=== PATIENT | male | born 1965 | race Hispanic/Latino ===

== ENCOUNTER 2019-03-06 11:09 | Inpatient (IN) | payer OTHER ==
[~2019-03-06] VITALS: Ht 177.8 cm; Wt 92.1 kg
[2019-03-06] MEDS ORDERED: SODIUM CHLORIDE 0.9% 1000ML 1,000 ML IV ONE ×2 (11:23→13:04)
[2019-03-06 11:47] LABS: BASOPHILS % (AUTO) 0.6 % (0.0-5.0); HEMATOCRIT 36.3 % (42-54); LYMPHOCYTES % (AUTO) 12.7 % (21.0-51.0); MEAN CORPUSCULAR HEMOGLOBIN 31.8 pg (27.0-33.0); MEAN CORPUSCULAR HGB CONC 36.5 g/dL (32.0-36.0); MEAN CORPUSCULAR VOLUME 87.3 fL (79-99); MONOCYTES % (AUTO) 5.8 % (3.0-13.0); NEUTROPHILS % (AUTO) 80.9 % (40.0-77.0); PLATELET COUNT (AUTO) 46 K/uL (130-400); RED BLOOD CELL COUNT(AUTO) 4.17 MIL/uL (4.50-6.20); RED CELL DISTRIBUTION WIDTH 13.2 % (11.0-15.5); WHITE BLOOD COUNT (AUTO) 4.6 K/uL (4.8-10.8)
[2019-03-06 11:54] LABS: POTASSIUM 3.6 mmol/L (3.5-5.1)
[2019-03-06 12:15] LABS: INR 1.05 (0.85-1.15); PARTIAL THROMBOPLASTIN TIME 32.2 SEC (26.3-35.5)
[2019-03-06 12:17] LABS: ALBUMIN 2.9 g/dL (3.5-5.0); BILIRUBIN,TOTAL 1.2 mg/dL (0.2-1.0); TOTAL PROTEIN, SERUM 6.5 g/dL (6.0-8.3)
[2019-03-06 12:32] LABS: MYOGLOBIN 334 ng/mL (10-92); TROPONIN I < 0.04 ng/mL (0.00-0.06)
[2019-03-06 12:35] LABS: APPEARANCE,URINE CLEAR (CLEAR); BILIRUBIN,URINE NEGATIVE (NEGATIVE); COLOR,URINE YELLOW (YELLOW); GLUCOSE, URINE (UA) 100 mg/dL (NEGATIVE); KETONES,URINE NEGATIVE (NEGATIVE); LEUKOCYTE ESTERASE ,URINE NEGATIVE (NEGATIVE); NITRATE,URINE NEGATIVE (NEGATIVE); OCCULT BLOOD,URINE MODERATE (NEGATIVE); PROTEIN,URINE 100 mg/dL (NEGATIVE); UROBILINOGEN,URINE 0.2 mg/dL (0.2-1.0)
[2019-03-06] MEDS ORDERED: ACETAMINOPHEN EXTRA STRENGTH 500 MG TABLET ONE (12:51)
[2019-03-06 13:14] LABS: BACTERIA,URINE Moderate /HPF (None Seen); SQUAMOUS EPITHELIAL CELL,UR 0-2 /HPF (0-2)
[2019-03-06 13:15] LABS: RBC,URINE 0-1 /HPF (0-1); WBC,URINE 0-1 /HPF (0-1)
[2019-03-06] MEDS ORDERED: HYDRALAZINE HCL 20 MG/ML VIAL IV PRN (14:00)
[2019-03-06] MEDS ORDERED: ONDANSETRON HCL 4 MG/2 ML VIAL IV PRN (14:00)
[2019-03-06] MEDS ORDERED: ACETAMINOPHEN 325 MG TAB PO PRN (14:00)
[2019-03-06] MEDS ORDERED: DOXYCYCLINE 100MG+NS 250ML 250 ML IV ONE (14:27)
[2019-03-06 15:30] VITALS: BP 105/60
[2019-03-06] MEDS: DOXYCYCLINE 100MG+NS 250ML 250 ML IV SCH (15:30)
--- NOTE | 2019-03-06 16:20 | NUR ---
NOTE ARRIVED FROM ER WITH C/O CHILLS AND SWEATS FOR THIS WHOLE WEEK. DENIES CHEST PAIN OR SOB. REPORTS HE HAD COUGH COUPLE WEEKS AGO BUT HE HAD STOPPED COUGHING. HE HAS SOME COUGH, NO PHLEGM NOTED. REPORTS HAVING DIARRHEA THIS WEEK. REPORTS TWO LOOSE STOOLS EARLIER TODAY. INSTRUCTED TO COLLECT STOOL AND WE WILL SEND FOR PCR. AT HIS SIDE. CONSULT FOR DR SNYDER ORDERED AND HE HAS ORDERS FOR ANTIBIOTICS.
[2019-03-06] MEDS: CEFTRIAXONE SODIUM 1 GM IV SCH (17:33)
[2019-03-06] MEDS: SODIUM CHLORIDE 0.9% 1000ML 1,000 ML IV SCH (17:33)
[2019-03-06 20:00] VITALS: BP 109/57
[2019-03-06] MEDS: ACETAMINOPHEN 325 MG TAB PO PRN (21:03)
[2019-03-07] VITALS: BP 101/50
[2019-03-07] MEDS ORDERED: TEMAZEPAM 15 MG CAPSULE ONE (00:13)
[2019-03-07] MEDS ORDERED: DOXYCYCLINE 100MG+NS 250ML 250 ML IV ONE (02:09)
[2019-03-07] MEDS: SODIUM CHLORIDE 0.9% 1000ML 1,000 ML IV SCH ×3 (03:16→16:44)
[2019-03-07] MEDS: DOXYCYCLINE 100MG+NS 250ML 250 ML IV SCH ×2 (03:16→14:57)
[2019-03-07] MEDS: ACETAMINOPHEN 325 MG TAB PO PRN ×2 (03:30→23:12)
[2019-03-07 04:00] VITALS: BP 116/60
[2019-03-07 04:30] LABS: MEAN CORPUSCULAR HEMOGLOBIN 31.9 pg (27.0-33.0); MEAN CORPUSCULAR HGB CONC 36.2 g/dL (32.0-36.0); NUCLEATED RED BLOOD CELLS 0.1 % (0.0-0.19); PLATELET COUNT (AUTO) 45 K/uL (130-400); RED BLOOD CELL COUNT(AUTO) 3.53 MIL/uL (4.50-6.20); RED CELL DISTRIBUTION WIDTH 13.2 % (11.0-15.5); WHITE BLOOD COUNT (AUTO) 3.8 K/uL (4.8-10.8)
[2019-03-07 04:49] LABS: ALBUMIN 2.3 g/dL (3.5-5.0); CREATININE 0.9 mg/dL (0.5-1.5); CRP QUANTITATIVE 95.3 mg/L (0.00-9.0); POTASSIUM 3.7 mmol/L (3.5-5.1); TOTAL PROTEIN, SERUM 5.4 g/dL (6.0-8.3)
[2019-03-07 05:25] LABS: ERYTHROCYTE SEDIMENTATION RATE 15 MM/HR (0-20)
[2019-03-07 08:00] VITALS: BP 96/62
--- NOTE | 2019-03-07 08:09 | NUR ---
PATIENT UPDATE SPIKED A TEMP OF 102.6 AT THE BEGINNING OF THE SHIFT THEN 101.5 AT 0400, TWICE PT WAS GIVEN TYLENOL FOR THE FEVER. COOLING MEASURES DONE, PT SHOWERED, ICE PACKS APPLIED, TYLENOL GR X GIVEN TWICE DURING THE WHOLE SHIFT. CONTINUES WITH THE IVF OF NS AT 150 CC'S PER HOUR AND CLEAR LIQUID DIET WHICH WAS WELL TOLERATED, NO FURTHER DIARRHEA, JUST HAD ONE EPISODE OF LOOSE BM WHICH IS VERY MINIMAL , NO ABDOMINAL PAIN. WITH GEN RASHES MORE PRONOUNCED IN THE CHEST WELL IN THE JESSICA LOWER EXTREMITIES. DR. COBURN ROUNDED LATE LAST NIGHT, PT SEEN AND EXAMINED, PT GIVEN RESTORIL 15 MG PO FOR INSOMNIA PER DR. COBURN' ORDER , PT SLEPT COMFORTABLY OVERNIGHT.
[2019-03-07 12:00] VITALS: BP 111/68
--- NOTE | 2019-03-07 13:00 | NUR ---
DR. SNYDER VISITED WITH PATIENT. POC DISCUSSED. NEW ORDERS RECEIVED AND CARRIED OUT.
[2019-03-07] MEDS: CEFTRIAXONE SODIUM 1 GM IV SCH (14:57)
[2019-03-07 16:00] VITALS: BP 117/65
--- NOTE | 2019-03-07 17:35 | NUR ---
D/C PLAN CM spoke to pt regarding d/c planning. Pt is ind. and lives with spouse. Spouse can assist in care as needed. CM provided community resources packet. Plan to home. CM to f/u. Addendum: 03/07/19 at 1735 by PREMA GARZON CM Amended: Links added.
[2019-03-07 19:20] VITALS: BP 109/67
[2019-03-07] MEDS: TEMAZEPAM 15 MG CAPSULE PO PRN (23:13)
[2019-03-08] VITALS: BP 112/68
[2019-03-08] MEDS: DOXYCYCLINE 100MG+NS 250ML 250 ML IV SCH ×2 (03:32→16:02)
[2019-03-08] MEDS: SODIUM CHLORIDE 0.9% 1000ML 1,000 ML IV SCH ×2 (03:44→05:55)
[2019-03-08 04:22] VITALS: BP 106/61
[2019-03-08 06:03] LABS: HEMATOCRIT 32.7 % (42-54); MEAN CORPUSCULAR HEMOGLOBIN 30.8 pg (27.0-33.0); MEAN CORPUSCULAR HGB CONC 34.9 g/dL (32.0-36.0); MEAN CORPUSCULAR VOLUME 88.2 fL (79-99); PLATELET COUNT (AUTO) 60 K/uL (130-400); RED CELL DISTRIBUTION WIDTH 13.5 % (11.0-15.5); WHITE BLOOD COUNT (AUTO) 5.2 K/uL (4.8-10.8)
[2019-03-08 06:13] LABS: CREATININE 0.8 mg/dL (0.5-1.5); POTASSIUM 3.6 mmol/L (3.5-5.1)
[2019-03-08 06:23] LABS: BAND NEUTROPHILS % (MANUAL) 25 % (0-2); LYMPHOCYTES % (MANUAL) 15 % (22-44); METAMYELOCYTES % 1 % (0-0); MONOCYTES % (MANUAL) 7 % (2-9); REACTIVE LYMPHOCYTES 5 % (0-0); SEGMENTED NEUTROPHILS % 47 % (40-70)
[2019-03-08 06:24] LABS: MAN.DIFF COMMENT-IMPRESSION MANUAL DIFFERENTIAL; PLATELET MORPHOLOGY COMMENT DECREASED
[2019-03-08 07:34] VITALS: BP 111/67
[2019-03-08 11:00] VITALS: BP 108/66
[2019-03-08 16:00] VITALS: BP 111/67
[2019-03-08] MEDS: CEFTRIAXONE SODIUM 1 GM IV SCH (16:02)
[2019-03-08 19:20] VITALS: BP 112/73
[2019-03-08] MEDS: TEMAZEPAM 15 MG CAPSULE PO PRN (21:25)
[2019-03-09 00:10] VITALS: BP 99/62
[2019-03-09] MEDS: DOXYCYCLINE 100MG+NS 250ML 250 ML IV SCH ×2 (03:16→15:54)
[2019-03-09 04:28] VITALS: BP 116/66
[2019-03-09 06:20] LABS: HEMATOCRIT 29.3 % (42-54); MEAN CORPUSCULAR HEMOGLOBIN 31.8 pg (27.0-33.0); MEAN CORPUSCULAR HGB CONC 36.1 g/dL (32.0-36.0); PLATELET COUNT (AUTO) 82 K/uL (130-400); RED BLOOD CELL COUNT(AUTO) 3.33 MIL/uL (4.50-6.20); RED CELL DISTRIBUTION WIDTH 13.2 % (11.0-15.5); WHITE BLOOD COUNT (AUTO) 5.7 K/uL (4.8-10.8)
[2019-03-09 06:26] LABS: CREATININE 0.7 mg/dL (0.5-1.5); CRP QUANTITATIVE 46.6 mg/L (0.00-9.0); POTASSIUM 3.4 mmol/L (3.5-5.1)
[2019-03-09 07:13] LABS: LYMPHOCYTES % (MANUAL) 26 % (22-44); MAN.DIFF COMMENT-IMPRESSION MANUAL DIFFERENTIAL; MONOCYTES % (MANUAL) 8 % (2-9); PLATELET MORPHOLOGY COMMENT DECREASED; SEGMENTED NEUTROPHILS % 66 % (40-70)
[2019-03-09 07:30] VITALS: BP 111/68
[2019-03-09 11:00] VITALS: BP 103/63
[2019-03-09] MEDS ORDERED: POTASSIUM CHLORIDE 20 MEQ ERTAB PO SCH ×2 (15:00→16:00)
[2019-03-09] MEDS: CEFTRIAXONE SODIUM 1 GM IV SCH (15:54)
[2019-03-09 16:00] VITALS: BP 109/66
== END 2019-03-09 18:30 | disposition home or self-care (01) | DRG 872 ==
LOC: EDH 11:09 → EDHIP 11:10 → 3AH 15:35
PROVIDERS: ADMIT Internal Medicine; ATTEND Internal Medicine
DX: A41.9 Sepsis, unspecified organism (principal); M62.82 Rhabdomyolysis; E87.1 Hypo-osmolality and hyponatremia; A09 Infectious gastroenteritis and colitis, unspecified; E44.0 Moderate protein-calorie malnutrition; A75.2 Typhus fever due to Rickettsia typhi; R21 Rash and other nonspecific skin eruption; E87.6 Hypokalemia; Z68.29 Body mass index [BMI] 29.0-29.9, adult; Z83.3 Family history of diabetes mellitus; Z82.49 Family history of ischemic heart disease and other diseases of the circulatory system; Z84.1 Family history of disorders of kidney and ureter; Z83.2 Family history of diseases of the blood and blood-forming organs and certain disorders involving the immune mechanism
CPT/HCPCS: 36415; 71046; 80048; 80053; 81001; 82270; 82550; 83605; 83630; 83874; 84484; 85025; 85027; 85610; 85651; 85730; 86000; 86140; 87040; 87046; 87088; 87177; 87328; 87804; 93005; G0378; J0696; J3490; J7030